=== PATIENT | male | born 1970 | race Caucasian/White ===

== ENCOUNTER 2021-07-27 05:42 | Emergency (ER) | payer OTHER ==
[~2021-07-27] VITALS: Ht 190.5 cm; Wt 108.2 kg
--- NOTE | 2021-07-27 06:01 | NUR ---
PT AMBULATED TO ROOM 37. PT RECENTLY TESTED POSITIVE FOR COVID-19 AND REPORTS NEW ONSET INCREASED SOB. PT REPORTS HIS COUGH MEDICINE IS NOT WORKING. PT CONNECTED TO [employer] VSS. HAYES AT BEDSIDE DURING ASSESSMENT. WILL CONTINUE TO MONITOR.
[2021-07-27] MEDS ORDERED: LIDOCAINE-MPF 2%, 2ML MM ONE (06:30)
[2021-07-27 06:55] VITALS: BP 116/84
--- NOTE | 2021-07-27 07:22 | NUR ---
REPORT GIVEN TO HERBERT MOARLES. CARE TRANSFERED.
--- NOTE | 2021-07-27 07:29 | NUR ---
pt states he feels much better after breathing tx. walked pt around the room to monitor saturations, pt remained above 93% on room air. states he has a way to monitor his oxygen at home. educated to come back into ER if oxygen saturations dip below 88% sustained even while resting and taking deep breaths.
== END 2021-07-27 08:06 | disposition home or self-care (01) ==
LOC: ED 07:09
DX: U07.1 COVID-19 (principal); J12.82 Pneumonia due to coronavirus disease 2019
CPT/HCPCS: 71045; 99283; J3490

== ENCOUNTER 2021-07-27 14:14 | Emergency (ER) | payer OTHER ==
[~2021-07-27] VITALS: Ht 188 cm; Wt 105.0 kg
[2021-07-27 15:17] LABS: BASOPHILS % (AUTO) 0 % (0-1); EOSINOPHILS % (AUTO) 0 % (1-7); LYMPHOCYTES % (AUTO) 8 % (22-44); MEAN CORPUSCULAR HEMOGLOBIN 30.1 pg (27.5-34.5); MEAN PLATELET VOLUME 8.3 fL (7.4-10.4); MONOCYTES % (AUTO) 6 % (2-9); NEUTROPHILS % (AUTO) 86 % (42-75); PLATELET COUNT 272 x10^3/uL (130-400); RED CELL DISTRIBUTION WIDTH 13.5 % (9.4-14.8)
[2021-07-27 15:27] LABS: ALANINE AMINOTRANSFERASE 44 U/L (12-78); ALBUMIN 3.1 g/dL (3.4-5.0); ANION GAP 7 mmol/L (5-15); CALCIUM 8.7 mg/dL (8.5-10.1); CHLORIDE 105 mmol/L (98-107); CREATININE 1.13 mg/dL (0.7-1.3)
[2021-07-27 15:29] LABS: ALKALINE PHOSPHATASE 58 U/L (45-117); BILIRUBIN,TOTAL 0.6 mg/dL (0.2-1.0); TOTAL PROTEIN 8.1 g/dL (6.4-8.2)
--- NOTE | 2021-07-27 20:03 | NUR ---
pt tested postiive for covid 9 days ago, states still feeling sx of SOB/cough that won't go away. all monitors attached, nsr, kiritn.
[2021-07-27] MEDS ORDERED: ALBUTEROL SULFATE 2.5 MG/3 ML NPPB ONE (20:30)
[2021-07-27] MEDS ORDERED: DEXAMETHASONE 4 MG/ML, 1ML IVPush ONE (20:30)
[2021-07-27] MEDS ORDERED: DOXYCYCLINE 100MG TABLET PO ONE (20:30)
[2021-07-27] MEDS ORDERED: ACETAMINOPHEN 500 MG TABLET PO ONE (20:30)
[2021-07-27] MEDS ORDERED: DEXAMETHASONE 4 MG/ML, 1ML ONE (20:30)
[2021-07-27] MEDS ORDERED: SODIUM CHLORIDE FLUSH 10ML SYR IVF ONE (20:30)
[2021-07-27] MEDS ORDERED: CEFTRIAXONE 1,000 MG in DEXTROSE 5% 50 ML IVPB ONE (20:30)
[2021-07-27] MEDS ORDERED: BENZONATATE 100 MG CAPSULE PO ONE (20:30)
[2021-07-27] MEDS ORDERED: ACETAMINOPHEN 500 MG TABLET ONE (20:30)
[2021-07-27] MEDS ORDERED: BENZONATATE 100 MG CAPSULE ONE (20:30)
[2021-07-27] MEDS ORDERED: FILTER 0.22 MICRON IV ONE (20:30)
[2021-07-27] MEDS ORDERED: CASIRIVIMAB 600 MG, IMDEVIMAB (REGN10987) 600 MG in SODIUM CHLORIDE 0.9% 250 ML IVPB ONE (20:30)
[2021-07-27] MEDS ORDERED: ALBUTEROL SULFATE 2.5 MG/3 ML ONE (20:31)
[2021-07-27] MEDS ORDERED: DOXYCYCLINE 100MG TABLET ONE (20:31)
[2021-07-27 21:40] VITALS: BP 125/76
--- NOTE | 2021-07-27 21:41 | NUR ---
regeneron infusing, albuterol tx in progress, pt tolerating well. vss, nadn.
--- NOTE | 2021-07-27 23:43 | NUR ---
pt educated on dc instructions, verbalized understanding. ambulatory to dc desk with steady gait.
== END 2021-07-27 23:45 | disposition home or self-care (01) ==
LOC: ED 20:15
DX: U07.1 COVID-19 (principal); J12.9 Viral pneumonia, unspecified; R00.0 Tachycardia, unspecified
CPT/HCPCS: 36415; 80053; 83605; 84145; 85025; 87040; 94640; 96365; 96375; 99285; J0696; J1100; J7613; M0243